=== PATIENT | female | born 1970 | race Asian ===

== ENCOUNTER → 2016-10-23 | Outpatient (CLI) | payer OTHER | LOC: FIMAGING 12:01 | DX: Z12.31 Encounter for screening mammogram for malignant neoplasm of breast (principal) | CPT/HCPCS: G0202 ==

== ENCOUNTER → 2018-03-08 | Outpatient (CLI) | payer OTHER | LOC: FIMAGING 14:04 | PROVIDERS: ATTEND Internal Medicine | DX: Z12.31 Encounter for screening mammogram for malignant neoplasm of breast (principal) ==